=== PATIENT | female | born 1950 | race Caucasian/White ===

== ENCOUNTER 2016-08-18 10:25 | Inpatient (IN) | payer OTHER ==
[~2016-08-18] VITALS: Ht 160 cm; Wt 119.1 kg
--- NOTE | ~2016-08-18 | PR ---
[place], [place] PROGRESS NOTE [id number] UNIT #: [id number] ROOM: 511 DOCTOR: JOEL MONCADA MD BIRTHDATE: [birth year] DOS: 08/20/2016 SUBJECTIVE: The patient well known to me. I had done a heart catheterization 2 years ago and had patent coronary arteries, apparently admitted with rapid atrial fibrillation and I was told her ejection fraction is 35%. The echocardiogram is not reported yet. Dr. Shiela Cho had an echocardiogram done in the office showed an EF of 35-40%. Heart rate is still little bit faster today, but she is in AFib. She is being digitalized also. OBJECTIVE: VITAL SIGNS: Her blood pressure is 109/66, atrial fibrillation, rate is 105. NECK: Supple, no JVD. LUNGS: Diminished breath sounds. HEART: Sounds are irregularly irregular. ABDOMEN: Soft. NEUROLOGIC: Stable. LABORATORY DATA: Hemoglobin 14, hematocrit 48.2. The patient is on Eliquis. IMPRESSION AND PLAN: The patient with new onset atrial fibrillation. Continue the metoprolol 100 b.i.d. The patient is on Eliquis 5 b.i.d., digoxin, lisinopril and Lasix. The patient continues to be in atrial fibrillation, consideration should be given for an outpatient cardioversion. JOEL MONCADA MD CM:PNTRANS [phone] JOEL MONCADA MD 08/21/16 0256 interface
--- NOTE | ~2016-08-18 | CON ---
[place], [place] REPORT OF CONSULTATION NAME: MARY NEWBERRY UNIT #: [id number] ROOM: 511 DOCTOR: KARL JIMENEZ MD BIRTHDATE: [birth year] DOS: 08/18/2016 HISTORY OF PRESENT ILLNESS: This is a 66-year-old -[place] woman with a history of morbid obesity, essential hypertension and hyperlipidemia. She has never had atrial fibrillation, heart failure, diabetes, stroke, COPD or any bleeding ulcers or any kidney problems. She has never smoked and does not use alcoholic beverages. She had noticed swelling of the lower extremities over the last weeks and also had noticed increasing exertional shortness of breath, but no orthopnea. She did not have any palpitations. Dr. Shiela Cho saw her in her office today and apparently she had atrial fibrillation with very rapid ventricular rate. The patient is not aware of her heart beating fast or beating irregularly. There has not been any dizziness or loss of consciousness. She has not had any neurological symptoms. No fever or chills. She eats fine. HOME MEDICATIONS: Atenolol 150 mg daily, furosemide 40 mg p.o. daily, potassium 10 mEq daily, simvastatin 40 mg daily and vitamin D2. PHYSICAL EXAMINATION: GENERAL: The patient who is morbidly obese. She is alert, oriented, afebrile. VITAL SIGNS: Pulse is irregular at 124 beats per minute, blood pressure 114/73. NECK: JVP is greater than 15 cm of water. Pulsation is more visible during inspiration. CARDIOVASCULAR: There is no cardiomegaly. No murmurs are present. EXTREMITIES: There is 2+ edema below the knees, 3+ pedal edema and there is mild diffuse erythema below the knees. RESPIRATORY: Breath sounds are diminished probably because of obesity and crackles are present bilaterally. LABORATORY DATA: Monitor shows atrial fibrillation with very rapid ventricular rate. She had a diagnostic heart catheterization done many years ago and had normal coronary arteries. An echocardiogram done in Dr. Shiela Cho's office demonstrated an LV ejection fraction of 35-40%. Chest x-ray is not available for review. IMPRESSION: 1. Newly diagnosed atrial fibrillation with very rapid ventricular rate. 2. Moderately severe cardiomyopathy. This is likely to be tachycardia induced. Underlying coronary artery disease is a possibility, but she had normal coronary arteries 7 or 8 years ago. 3. She has acute on chronic combined systolic and diastolic heart failure, i.e., atrial fibrillation with rapid ventricular rate and reduced LV systolic function. RECOMMENDATIONS: [place], [place] REPORT OF CONSULTATION NAME: MARY NEWBERRY UNIT #: [id number] ROOM: [facility] DOCTOR: TONY MARTIN,KARL BIRTHDATE: [birth year] 1. I think she probably has a better control of ventricular rate with metoprolol and atenolol, therefore, metoprolol 50 mg b.i.d. is being started. I think for the time being, IV Cardizem should also be started to tame the heart rate adequately. 2. For heart failure, she should be given IV furosemide, which you have already started, dose should be adjusted depending on diuresis. I thank you for this consult. KARL JIMENEZ MD CM:CONSTR:REPORT OF CONSULTATION 45 08/19/162041 interface
--- NOTE | ~2016-08-18 | WRIGHTHP ---
[place], [place] PATIENT HISTORY AND PHYSICAL EXAM NAME: MARY NEWBERRY [facility] #: [id number] UNIT #: [id number] ROOM: 511 DOCTOR: JOÃO PALMER MD BIRTHDATE: [birth year] DOS: 08/18/2016 HISTORY OF PRESENT ILLNESS: The patient is 66 years old who was seen in the office recently with complaints of shortness of breath and leg edema. The patient was advised a chest x-ray as well as an echocardiogram. Echo showed she at the time of examination in the office was not in AFib. She was in regular sinus rhythm. During the echocardiogram, she was noted to have atrial fibrillation, and also noticed to have acute systolic dysfunction, and the patient was advised to come in to the office, where she was evaluated and was found to be in rapid AFib, and she was admitted to the hospital. She does complain of some mild shortness of breath and leg edema. She denies having any chest pains or palpitations, does not have any fever or chills, does not have any abdominal pain, nausea, any emesis. The patient has had some redness of her legs recently. Even though she was ordered a chest x-ray when last seen, she did not get it done, but upon admission yesterday, a chest x-ray was ordered. I do not have the results of that at the time of dictation. PAST MEDICAL HISTORY: Significant for: 1. Benign hypertension. 2. Left ventricular hypertrophy. 3. History of cardiac catheterization in 04/2014 shows no coronary artery disease. 4. History of vaginal bleed with negative workup. 5. Mixed hyperlipidemia. MEDICATIONS: She is on are metoprolol 150 mg daily, aspirin 81 daily. SOCIAL HISTORY: Nonsmoker, does not use any alcohol. PHYSICAL EXAMINATION: GENERAL: The patient is awake and alert and oriented in mild respiratory distress. VITAL SIGNS: Graphic trend shows a pressure of 117/69, pulse of 88, respirations 20, temperature 98.0. LUNGS: Diminished breath sounds. HEART: Few rales heard at the bases. CARDIOVASCULAR: Irregular. Heart rate in the low 100s. ABDOMEN: Obese, soft. EXTREMITIES: Trace edema with some minimal redness of the lower legs. ASSESSMENT AND PLAN: 1. Acute systolic congestive heart failure. The patient has been admitted. IV diuretics have been started. Echocardiogram again was done as an outpatient a few days ago. We will get a copy of it placed in chart. 2. New onset atrial fibrillation with rapid ventricular response. The patient has been admitted, rate control has been achieved with multiple medications and anticoagulants started. Dr. Del Castillo has been consulted. The patient just had a cardiac catheterization 2 years ago, so this possibly is rate related. 3. Benign hypertension, controlled. It would be in the patient's best interest to lose weight. [place], [place] PATIENT HISTORY AND PHYSICAL EXAM NAME: MARY NEWBERRY UNIT #: [id number] ROOM: [facility] DOCTOR: JOÃO PALMER MD BIRTHDATE: [birth year] JOÃO PALMER MD CM:HISPHYS:PATIENT HISTORY AND PHYSICAL EXAMINATION [id number] JOÃO PALMER MD 08/19/16 0814 interface
--- NOTE | ~2016-08-18 | PR ---
[place], [place] PROGRESS NOTE NAME: MARY NEWBERRY UNIT #: [id number] ROOM: 511 DOCTOR: JOÃO PALMER MD BIRTHDATE: [birth year] DOS: SUBJECTIVE: The patient feels okay, does not have any complaints today. OBJECTIVE: VITAL SIGNS: Blood pressure is 104/58, pulse of 90s to low 100s, respirations 20, temperature 97.7. LUNGS: Clear. HEART: Irregular. ABDOMEN: Obese, soft, nontender. EXTREMITIES: Trace edema. ASSESSMENT AND PLAN: 1. Cardiomyopathy, dilated, most likely from atrial fibrillation. There is no evidence of congestive heart failure. 2. Atrial fibrillation, new onset with rapid ventricular response, she still has some episodes, is on IV Cardizem and p.o. beta blockers. We will discuss with Dr. Jeffers today about further adjustments in medications. 3. Acute systolic congestive heart failure with peripheral volume overload, on diuretics, continue. JOÃO PALMER MD CM:PNTRANS [phone] JOÃO PALMER MD 08/20/16 1211 interface
--- NOTE | ~2016-08-18 | PR ---
[place], [place] PROGRESS NOTE NAME: MARY NEWBERRY UNIT #: [id number] ROOM: 511 DOCTOR: JOÃO PALMER MD BIRTHDATE: [birth year] DOS: 08/21/2016 SUBJECTIVE: The patient is doing fine without any complaint. Denies any chest pains, palpitations or shortness of breath. OBJECTIVE: VITAL SIGNS: Graphic trend shows a pressure of 101/72, pulse is 98, respirations 20, temperature 97.6. LUNGS: Clear. HEART: Irregular. Heart rate in the low 90s. ABDOMEN: Obese, soft. EXTREMITIES: Without any edema. ASSESSMENT AND PLAN: 1. Atrial fibrillation with rapid ventricular response. Heart rate has improved. 2. Cardiomyopathy, ejection fraction 35%, possibly rate related. 3. History of negative coronary artery disease with a negative cardiac catheterization 2 years ago. The patient is going to be discharged home today, anticoagulated, and possibly undergo cardioversion as an outpatient. 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 Bojorquez. JOÃO PALMER MD CM:PNTRANS [phone] JOÃO PALMER MD 08/22/16 0040 interface
--- NOTE | ~2016-08-18 | DS ---
[place], [place] DISCHARGE SUMMARY NAME: MARY NEWBERRY [facility] #: [id number] UNIT #: [id number] ROOM: 511 DOCTOR: JOÃO PALMER MD BIRTHDATE: [birth year] DOS: 08/21/2016 DIAGNOSES: 1. Atrial fibrillation with rapid ventricular response. 2. Severe cardiomyopathy with a wall motion abnormality, ejection fraction 35%. 3. Acute systolic congestive heart failure, resolved. 4. Leg edema, improved. 5. History of cardiac catheterization 2 years ago, which shows no coronary artery disease. 6. Benign hypertension. HOSPITAL COURSE: This patient is 66 years old, comes in with complaints of shortness of breath. She was found to be in rapid AFib in the office and had an echocardiogram, which also showed that she had ejection fraction of 35%, and she was admitted. The patient after admission, IV diuretics were given. The patient was placed on high dose of beta blockers, lisinopril as well as IV heparin protocol. This was later changed to Eliquis. The patient is stable and is not having any problems. She does have some periods where the heart rate does go up, but the rate is much better controlled now. Her leg swelling has improved. Dr. Peters and Dr. Jeffers did see the patient and agreed on the treatment plan. The patient will need a cardioversion as an outpatient. The patient is overall stable and today. The plan is to discharge her to home today. DISCHARGE MEDICATIONS: Eliquis 5 mg b.i.d., metoprolol 100 b.i.d., lisinopril 10 daily, digoxin 0.125 daily, simvastatin 40 daily, potassium 10 daily, vitamin D 50,000 units daily, Lasix 60 mg daily. JOÃO PALMER MD CM:DISCHARG [id number] JOÃO PALMER MD 08/21/16 0916 interface
[~2016-08-18 10:25] MED LIST: ASPIRIN CHILDRE81 MG PO; ATENOLOL100 M1 PO; ATENOLOL100 MG PO; DAYPRO600 M1 PO; IBU-8800 MG PO; SIMVASTATIN40 MG PO
[2016-08-18 10:52] VITALS: BP 125/69
[2016-08-18] MEDS ORDERED: ATENOLOL100 M1 PO ×2 (11:40→11:41)
[2016-08-18] MEDS ORDERED: LASIX40 MG PO (11:41)
[2016-08-18] MEDS ORDERED: K-TAB10 MEQ PO (11:42)
[2016-08-18] MEDS ORDERED: VITAMIN D50000 I3 PO (11:42)
[2016-08-18 12:26] LABS: BASO % 0.1 % (0.0-1.0); EOS # 0.1 10*3/uL (0.0-0.4); HEMATOCRIT 48.2 % (37.0-47.0); HEMOGLOBIN 14.3 g/dl (12.0-16.0); LYMPH # 1.5 10*3/uL (1.3-4.4); LYMPH % 17.5 % (27.0-41.0); MEAN CELL VOLUME 94.3 fl (81.0-99.0); MEAN CORPUSCULAR HGB CONC 29.7 g/dl (33.0-37.0); MEAN PLATELET VOLUME 11.3 fl (9.6-12.3); MONO # 0.4 10*3/uL (0.1-1.0); MONO % 4.6 % (3.0-9.0); NEUT # 6.3 10*3/uL (2.3-7.9); NEUT % 76.6 % (47.0-73.0); PLATELET COUNT AUTOMATED 194 10*3/uL (130-400); RED BLOOD COUNT 5.11 10*6/uL (4.10-5.10); RED CELL DISTRI WIDTH 13.8 % (0-14.5); WHITE BLOOD COUNT 8.3 10*3/uL (4.8-10.8)
[2016-08-18 12:36] LABS: PROTHROMBIN TIME 10.9 SECONDS (9.0-12.4)
[2016-08-18 16:00] VITALS: BP 121/92
[2016-08-18 20:00] VITALS: BP 114/73
[2016-08-19] VITALS (12 sets, daily range): BP systolic 95–122; BP diastolic 49–76
[2016-08-20] VITALS (7 sets, daily range): BP systolic 94–123; BP diastolic 53–89
[2016-08-21] VITALS: BP 101/72
[2016-08-21 08:00] VITALS: BP 132/88
[2016-08-21] MEDS ORDERED: ELIQUIS5 M1 PO (08:53)
[2016-08-21] MEDS ORDERED: DIGITEK0.125 MG PO (08:53)
[2016-08-21] MEDS ORDERED: METOPROLOL TART50 M1 PO (08:53)
[2016-08-21] MEDS ORDERED: LISINOPRIL10 M1 PO (08:53)
[2016-08-21] MEDS ORDERED: LASIX40 MG PO (08:53)
== END 2016-08-21 09:42 | disposition home or self-care (01) | DRG 308 ==
LOC: 5E 10:25
PROVIDERS: Internal Medicine
DX: I48.91 Unspecified atrial fibrillation (principal); I50.21 Acute systolic (congestive) heart failure; I50.43 Acute on chronic combined systolic (congestive) and diastolic (congestive) heart failure; I11.0 Hypertensive heart disease with heart failure; I42.9 Cardiomyopathy, unspecified; E78.2 Mixed hyperlipidemia

== ENCOUNTER → 2017-09-16 | Outpatient (CLI) | payer OTHER ==
[~2017-09-16] MED LIST changes: +DIGITEK0.125 MG PO; +ELIQUIS5 M1 PO; +K-TAB10 MEQ PO; +LASIX40 MG PO; +LISINOPRIL10 M1 PO; +METOPROLOL TART50 M1 PO; +VITAMIN D50000 I3 PO
== END ==
LOC: CT 08:31
DX: K76.0 Fatty (change of) liver, not elsewhere classified (principal); N28.1 Cyst of kidney, acquired

== ENCOUNTER → 2017-10-19 | Outpatient (CLI) | payer OTHER | END | disposition home or self-care (01) | LOC: US 15:54 | DX: N95.0 Postmenopausal bleeding (principal) ==

== ENCOUNTER → 2018-01-14 | Outpatient (CLI) | payer OTHER | END | disposition home or self-care (01) | LOC: MAMMO 12:34 | DX: Z12.31 Encounter for screening mammogram for malignant neoplasm of breast (principal); I73.9 Peripheral vascular disease, unspecified ==

== ENCOUNTER → 2018-12-06 | Outpatient (CLI) | payer OTHER | END | disposition home or self-care (01) | LOC: US 06:09 | DX: Z01.818 Encounter for other preprocedural examination (principal); Z78.0 Asymptomatic menopausal state ==

== ENCOUNTER → 2019-01-31 | Outpatient (CLI) | payer OTHER ==
[~2019-01-31] MED LIST changes: +ENOXAPARIN40 MG/0.2 SQ; +METFORMIN HYDR500 MG PO; +METOPROLOL TAR100 M1 PO; +Motrin,Rufen800 MG PO
== END | disposition home or self-care (01) ==
LOC: LAB 13:45
DX: N95.0 Postmenopausal bleeding (principal)

== ENCOUNTER → 2019-02-07 | Day surgery (SDC) | payer OTHER ==
[2019-01-31 14:37] VITALS: BP 100/51
[~2019-02-07] VITALS: Ht 160 cm; Wt 108.9 kg
[2019-02-07 07:30] VITALS: BP 115/54
[2019-02-07 09:30] VITALS: BP 107/67
[2019-02-07 09:45] VITALS: BP 107/66
[2019-02-07 10:01] VITALS: BP 108/67
== END | disposition home or self-care (01) ==
LOC: SDC 01-31 14:00
DX: N85.01 Benign endometrial hyperplasia (principal); N92.4 Excessive bleeding in the premenopausal period; I10 Essential (primary) hypertension; E11.9 Type 2 diabetes mellitus without complications; I48.91 Unspecified atrial fibrillation; R93.89 Abnormal findings on diagnostic imaging of other specified body structures; E66.01 Morbid (severe) obesity due to excess calories; Z68.41 Body mass index [BMI] 40.0-44.9, adult; Z98.51 Tubal ligation status; Z98.890 Other specified postprocedural states; Z79.899 Other long term (current) drug therapy

== ENCOUNTER → 2019-05-27 | Outpatient (CLI) | payer OTHER ==
[2019-05-27 08:22] LABS: BASO % 0.1 % (0.0-1.0); EOS # 0.1 10*3/uL (0.0-0.4); EOS % 1.6 % (1.0-4.0); HEMATOCRIT 46.4 % (37.0-47.0); HEMOGLOBIN 14.2 g/dl (12.0-16.0); LYMPH # 1.4 10*3/uL (1.3-4.4); LYMPH % 15.6 % (27.0-41.0); MEAN CELL VOLUME 93.2 fl (81.0-99.0); MEAN CORPUSCULAR HGB 28.5 pg (27.0-31.0); MEAN CORPUSCULAR HGB CONC 30.6 g/dl (33.0-37.0); MEAN PLATELET VOLUME 11.2 fl (9.6-12.3); MONO # 0.5 10*3/uL (0.1-1.0); MONO % 5.9 % (3.0-9.0); NEUT # 6.8 10*3/uL (2.3-7.9); NEUT % 76.6 % (47.0-73.0); PLATELET COUNT AUTOMATED 228 10*3/uL (130-400); RED BLOOD COUNT 4.98 10*6/uL (4.10-5.10); RED CELL DISTRI WIDTH 15.2 % (0-14.5); WHITE BLOOD COUNT 8.9 10*3/uL (4.8-10.8)
[2019-05-27 08:51] LABS: ALBUMIN 3.3 gm/dl (3.1-4.5); BUN 20 mg/dl (7-24); CHLORIDE 105 mmol/L (98-107); CHOLESTEROL 148 mg/dL (<200); CREATININE 0.92 mg/dL (0.55-1.02); FREE T4 1.08 ng/dl (0.76-1.46); HDL CHOLESTEROL 44 mg/dl (40-60); LDL CHOLESTEROL 64 mg/dL (9-159); POTASSIUM 4.6 mmol/L (3.5-5.1); SGOT/AST 13 IU/L (3-35); SGPT/ALT 20 U/L (12-78); SODIUM 141 mmol/L (136-145); TOTAL PROTEIN 6.9 gm/dL (6.4-8.2); TRIGLYCERIDES 200 mg/dl (<150); VLDL CHOLESTEROL 40 mg/dL (6-40)
[2019-05-27 08:57] LABS: ALKALINE PHOSPHATASE 94 U/L (45-117)
[2019-05-27 09:09] LABS: VITAMIN D, 25-HYDROXY 23.9 ng/mL (30-100)
== END | disposition home or self-care (01) ==
LOC: LAB 08:02
PROVIDERS: Internal Medicine
DX: I10 Essential (primary) hypertension (principal); E11.9 Type 2 diabetes mellitus without complications; E55.9 Vitamin D deficiency, unspecified

== ENCOUNTER → 2019-10-06 | Outpatient (CLI) | payer MEDICARE | END | disposition home or self-care (01) | LOC: US 10:03 | DX: I87.2 Venous insufficiency (chronic) (peripheral) (principal); I73.9 Peripheral vascular disease, unspecified ==

== ENCOUNTER → 2020-05-02 | Outpatient (CLI) | payer MEDICARE ==
[2020-05-02 14:46] LABS: BASO % 0.1 % (0.0-1.0); EOS # 0.2 10*3/uL (0.0-0.4); EOS % 1.6 % (1.0-4.0); HEMATOCRIT 44.7 % (37.0-47.0); LYMPH # 1.8 10*3/uL (1.3-4.4); LYMPH % 18.8 % (27.0-41.0); MEAN CELL VOLUME 94.9 fl (81.0-99.0); MEAN CORPUSCULAR HGB 28.7 pg (27.0-31.0); MEAN CORPUSCULAR HGB CONC 30.2 g/dl (33.0-37.0); MEAN PLATELET VOLUME 11.1 fl (9.6-12.3); MONO # 0.5 10*3/uL (0.1-1.0); MONO % 5.7 % (3.0-9.0); NEUT # 6.9 10*3/uL (2.3-7.9); NEUT % 73.4 % (47.0-73.0); PLATELET COUNT AUTOMATED 230 10*3/uL (130-400); RED BLOOD COUNT 4.71 10*6/uL (4.10-5.10); RED CELL DISTRI WIDTH 13.1 % (0-14.5); WHITE BLOOD COUNT 9.3 10*3/uL (4.8-10.8)
[2020-05-02 15:22] LABS: ALBUMIN 3.3 gm/dl (3.1-4.5); CHLORIDE 103 mmol/L (98-107); SODIUM 139 mmol/L (136-145)
[2020-05-02 15:36] LABS: ALKALINE PHOSPHATASE 91 U/L (45-117); BUN 16 mg/dl (7-24); CHOLESTEROL 156 mg/dL (<200); FREE T4 1.08 ng/dl (0.76-1.46); HDL CHOLESTEROL 42 mg/dl (40-60); LDL CHOLESTEROL 55 mg/dL (9-159); SGOT/AST 11 IU/L (3-35); SGPT/ALT 24 U/L (12-78); TOTAL PROTEIN 6.9 gm/dL (6.4-8.2); TRIGLYCERIDES 293 mg/dl (<150); VLDL CHOLESTEROL 59 mg/dL (6-40)
[2020-05-02 15:38] LABS: VITAMIN D, 25-HYDROXY 23.4 ng/mL (30-100)
== END | disposition home or self-care (01) ==
LOC: LAB 14:14
PROVIDERS: ATTEND Internal Medicine
DX: Z00.00 Encounter for general adult medical examination without abnormal findings (principal); E11.9 Type 2 diabetes mellitus without complications; I10 Essential (primary) hypertension; E55.9 Vitamin D deficiency, unspecified; I48.91 Unspecified atrial fibrillation; E78.2 Mixed hyperlipidemia

== ENCOUNTER 2020-09-15 07:21 | Emergency (ER) | payer MEDICARE ==
[2020-09-15] MEDS ORDERED: MITIGARE0.6 MG PO (08:40)
== END 2020-09-15 08:54 | disposition home or self-care (01) ==
LOC: ED 07:21
DX: M25.531 Pain in right wrist (principal); M10.9 Gout, unspecified; Z79.899 Other long term (current) drug therapy

== ENCOUNTER → 2020-12-02 | Outpatient (CLI) | payer MEDICARE ==
[~2020-12-02] MED LIST changes: +MITIGARE0.6 MG PO
== END | disposition home or self-care (01) ==
LOC: RAD 09:43 → MAMMO 10:30
PROVIDERS: ATTEND Internal Medicine
DX: Z12.31 Encounter for screening mammogram for malignant neoplasm of breast (principal); Z13.820 Encounter for screening for osteoporosis; Z78.0 Asymptomatic menopausal state

== ENCOUNTER 2021-01-31 14:55 | Emergency (ER) | payer MEDICARE ==
[~2021-01-31] VITALS: Ht 160 cm; Wt 99.8 kg
[2021-01-31] MEDS ORDERED: MEDROL DOSEPAK4 MG PO (16:28)
[2021-01-31] MEDS ORDERED: HYDROCODONE-AC1 EAC1 PO (16:29)
== END 2021-01-31 16:37 | disposition home or self-care (01) ==
LOC: ED 14:55
DX: M10.9 Gout, unspecified (principal); Z79.899 Other long term (current) drug therapy

== ENCOUNTER → 2022-03-10 | Outpatient (CLI) | payer MEDICARE ==
[~2022-03-10] MED LIST changes: +HYDROCODONE-AC1 EAC1 PO; +MEDROL DOSEPAK4 MG PO
[2022-03-10 09:01] LABS: BASO % 0.1 % (0.0-1.0); EOS # 0.1 10*3/uL (0.0-0.4); EOS % 1.5 % (1.0-4.0); HEMATOCRIT 43.6 % (37.0-47.0); LYMPH # 1.3 10*3/uL (1.3-4.4); LYMPH % 19.4 % (27.0-41.0); MEAN CORPUSCULAR HGB 29.4 pg (27.0-31.0); MEAN CORPUSCULAR HGB CONC 31.7 g/dl (33.0-37.0); MONO # 0.4 10*3/uL (0.1-1.0); NEUT # 4.9 10*3/uL (2.3-7.9); NEUT % 72.9 % (47.0-73.0); PLATELET COUNT AUTOMATED 178 10*3/uL (130-400); RED BLOOD COUNT 4.69 10*6/uL (4.10-5.10); RED CELL DISTRI WIDTH 13.3 % (0-14.5); WHITE BLOOD COUNT 6.7 10*3/uL (4.8-10.8)
[2022-03-10 09:35] LABS: ALKALINE PHOSPHATASE 65 U/L (46-116); BUN 13 mg/dl (9-23); CHLORIDE 104 mmol/L (98-107); CHOLESTEROL 131 mg/dL (<200); CREATININE 0.77 mg/dL (0.55-1.02); LDL CHOLESTEROL 58 mg/dL (9-159); POTASSIUM 4.9 mmol/L (3.4-5.1); SGPT/ALT 20 U/L (10-49); SODIUM 136 mmol/L (136-145); TOTAL PROTEIN 6.6 gm/dL (6.0-8.0); TRIGLYCERIDES 155 mg/dl (<150)
[2022-03-10 09:37] LABS: FREE T4 1.09 ng/dl (0.89-1.76); T3 UPTAKE 27.5 % (22.4-36.7); THYROID STIM HORMONE (HS) 2.463 uIU/ml (0.550-4.780)
[2022-03-10 10:11] LABS: VITAMIN D, 25-HYDROXY 41.5 ng/mL (30-100)
== END | disposition home or self-care (01) ==
LOC: LAB 08:21
PROVIDERS: ATTEND Internal Medicine
DX: E11.65 Type 2 diabetes mellitus with hyperglycemia (principal); I10 Essential (primary) hypertension; E55.9 Vitamin D deficiency, unspecified; Z13.0 Encounter for screening for diseases of the blood and blood-forming organs and certain disorders involving the immune mechanism; Z13.89 Encounter for screening for other disorder; Z13.1 Encounter for screening for diabetes mellitus; Z13.21 Encounter for screening for nutritional disorder; Z13.228 Encounter for screening for other metabolic disorders; Z13.220 Encounter for screening for lipoid disorders; Z13.29 Encounter for screening for other suspected endocrine disorder; Z13.6 Encounter for screening for cardiovascular disorders; Z13.9 Encounter for screening, unspecified

== ENCOUNTER → 2022-04-20 | Outpatient (CLI) | payer MEDICARE | END | disposition home or self-care (01) | LOC: MAMMO 08:27 | PROVIDERS: ATTEND Internal Medicine | DX: Z12.31 Encounter for screening mammogram for malignant neoplasm of breast (principal) ==

== ENCOUNTER → 2022-12-09 | Outpatient (CLI) | payer MEDICARE | END | disposition home or self-care (01) | LOC: LAB 15:24 | PROVIDERS: ATTEND Internal Medicine | DX: R21 Rash and other nonspecific skin eruption (principal) ==

== ENCOUNTER 2023-11-18 15:20 | Inpatient (IN) | payer MEDICARE ==
[~2023-11-18] VITALS: Ht 160 cm; Wt 93.6 kg
[2023-11-18 15:28] VITALS: BP 139/67
[2023-11-18] MEDS ORDERED: Piperacillin Sodium/Tazobact 50 ML IV ONE (15:45)
[2023-11-18] MEDS ORDERED: Vancomycin Hydrochloride 250 ML IV ONE (15:45)
[2023-11-18 16:01] LABS: BASO % 0.1 % (0.0-1.0); EOS # 0.1 10*3/uL (0.0-0.4); EOS % 1.4 % (1.0-4.0); HEMATOCRIT 45.5 % (37.0-47.0); LYMPH # 1.9 10*3/uL (1.3-4.4); LYMPH % 19.1 % (27.0-41.0); MEAN CORPUSCULAR HGB 29.5 pg (27.0-31.0); MEAN CORPUSCULAR HGB CONC 31.4 g/dl (33.0-37.0); MEAN PLATELET VOLUME 10.5 fl (9.6-12.3); MONO # 0.5 10*3/uL (0.1-1.0); MONO % 5.5 % (3.0-9.0); NEUT # 7.1 10*3/uL (2.3-7.9); NEUT % 73.6 % (47.0-73.0); PLATELET COUNT AUTOMATED 203 10*3/uL (130-400); RED BLOOD COUNT 4.84 10*6/uL (4.10-5.10); RED CELL DISTRI WIDTH 13.7 % (0-14.5); WHITE BLOOD COUNT 9.7 10*3/uL (4.8-10.8)
[2023-11-18 16:15] LABS: BUN 14 mg/dl (9-23); CHLORIDE 104 mmol/L (98-107); POTASSIUM 4.4 mmol/L (3.4-5.1)
[2023-11-18] MEDS ORDERED: OZEMPIC0.25 MG/03 SQ (17:45)
[2023-11-18 19:30] VITALS: BP 132/72
[2023-11-18] MEDS ORDERED: Magnesium Hydroxide 30 ML UDC PO PRN (21:55)
[2023-11-18] MEDS ORDERED: BISACODYL 10 MG SUPP R PRN (21:55)
[2023-11-18] MEDS ORDERED: ACETAMINOPHEN 325 MG TAB PO PRN (21:55)
[2023-11-18] MEDS ORDERED: BISACODYL 5 MG TAB PO PRN (21:55)
[2023-11-18] MEDS ORDERED: Ondansetron Hydrochloride 4 MG/2 ML VIAL IV PRN (21:55)
[2023-11-18] MEDS ORDERED: ACETAMINOPHEN 650 MG SUPP R PRN (21:55)
[2023-11-18] MEDS ORDERED: Piperacillin Sodium/Tazobact 50 ML IV SCH (22:00)
[2023-11-18] MEDS ORDERED: SODIUM CHLORIDE 0.9% 1,000 ML IV ONE (22:15)
[2023-11-18] MEDS ORDERED: DEXTROSE 10 % IN WATER 250 ML IV PRN (22:15)
[2023-11-19 02:10] VITALS: BP 138/76
[2023-11-19] MEDS ORDERED: Vancomycin Hydrochloride 1,000 MG in SODIUM CHLORIDE 0.9% 250 ML IV SCH (06:00)
[2023-11-19 06:08] LABS: ALKALINE PHOSPHATASE 103 U/L (46-116); BUN 10 mg/dl (9-23); CHLORIDE 102 mmol/L (98-107); CHOLESTEROL 130 mg/dL (<200); FREE T4 1.22 ng/dl (0.89-1.76); LDL CHOLESTEROL 62 mg/dL (9-159); POTASSIUM 4.4 mmol/L (3.4-5.1); SGPT/ALT 21 U/L (5-49); TOTAL PROTEIN 6.7 gm/dL (6.0-8.0); TRIGLYCERIDES 142 mg/dl (<150)
[2023-11-19 06:27] LABS: BASO % 0.2 % (0.0-1.0); EOS # 0.1 10*3/uL (0.0-0.4); HEMATOCRIT 44.9 % (37.0-47.0); LYMPH # 1.4 10*3/uL (1.3-4.4); LYMPH % 11.9 % (27.0-41.0); MEAN CELL VOLUME 92.8 fl (81.0-99.0); MEAN CORPUSCULAR HGB 30.2 pg (27.0-31.0); MEAN CORPUSCULAR HGB CONC 32.5 g/dl (33.0-37.0); MEAN PLATELET VOLUME 11.2 fl (9.6-12.3); MONO # 0.7 10*3/uL (0.1-1.0); NEUT # 9.6 10*3/uL (2.3-7.9); NEUT % 80.6 % (47.0-73.0); PLATELET COUNT AUTOMATED 183 10*3/uL (130-400); RED BLOOD COUNT 4.84 10*6/uL (4.10-5.10); RED CELL DISTRI WIDTH 13.5 % (0-14.5); WHITE BLOOD COUNT 11.9 10*3/uL (4.8-10.8)
[2023-11-19] MEDS ORDERED: INSULIN LISPRO 1 UNIT/0.01 ML SQ SCH (07:30)
[2023-11-19 08:00] VITALS: BP 136/66
[2023-11-19] MEDS ORDERED: TRADJENTA5 M1 PO (09:03)
[2023-11-19] MEDS ORDERED: FUROSEMIDE 40 MG TAB PO SCH (10:00)
[2023-11-19] MEDS ORDERED: LINAGLIPTIN 5 MG TAB PO SCH (10:00)
[2023-11-19] MEDS ORDERED: Metoprolol Tartrate 100 MG TAB PO SCH (10:00)
[2023-11-19] MEDS ORDERED: LISINOPRIL 10 MG TAB PO SCH (10:00)
[2023-11-19] MEDS ORDERED: APIXABAN 5 MG TAB PO SCH (10:00)
[2023-11-19] MEDS ORDERED: DIGOXIN 125 MCG TAB PO SCH (10:00)
[2023-11-19] MEDS ORDERED: POTASSIUM CHLORIDE 10 MEQ TAB PO SCH (10:00)
[2023-11-19 12:00] VITALS: BP 114/70
[2023-11-19 16:00] VITALS: BP 111/52
[2023-11-19] MEDS ORDERED: VANCOMYCIN/WATER FOR INJ (PEG) 300 ML IV SCH (18:01)
[2023-11-19 20:00] VITALS: BP 110/58
[2023-11-19] MEDS ORDERED: SIMVASTATIN 20 MG TAB PO SCH (22:00)
[2023-11-20] VITALS: BP 118/65
[2023-11-20 08:00] VITALS: BP 130/83
[2023-11-20] MEDS ORDERED: VIBRAMYCIN100 MG PO (08:46)
[2023-11-20] MEDS ORDERED: FOAM BANDAGE 1 EACH BANDAGE T ONE (10:21)
[2023-11-20] MEDS ORDERED: ALGINATE DRESSING/CME-CELL 4X4 1 EACH BANDAGE T ONE (10:21)
[2023-11-20] MEDS ORDERED: FOAM BANDAGE 5X5 T ONE (10:22)
[2023-11-20] MEDS ORDERED: FOAM BANDAGE HEEL T ONE (10:22)
[2023-11-20] MEDS ORDERED: ALGINATE DRESSING/CME-CELL 1 EACH BANDAGE T ONE (10:24)
[2023-11-20] MEDS ORDERED: ADHESIVE BANDAGE 1 EACH BANDAGE T ONE (10:33)
== END 2023-11-20 12:06 | disposition home or self-care (01) | DRG 563 ==
LOC: ED 15:20 → 4E 19:37 → EDHOLD 19:37 → 4E 11-19 01:33
PROVIDERS: Nurse Practitioner; Student in an Organized Health Care Education/Training Program; ADMIT Internal Medicine; ATTEND Internal Medicine
DX: S82.61XA Displaced fracture of lateral malleolus of right fibula, initial encounter for closed fracture (principal); L03.115 Cellulitis of right lower limb; I48.21 Permanent atrial fibrillation; S93.491A Sprain of other ligament of right ankle, initial encounter; S90.851A Superficial foreign body, right foot, initial encounter; I87.2 Venous insufficiency (chronic) (peripheral); Z98.51 Tubal ligation status; Z90.710 Acquired absence of both cervix and uterus; Z82.49 Family history of ischemic heart disease and other diseases of the circulatory system; Z80.6 Family history of leukemia; W18.39XA Other fall on same level, initial encounter; Y93.89 Activity, other specified; Y92.098 Other place in other non-institutional residence as the place of occurrence of the external cause; Y99.8 Other external cause status

== ENCOUNTER → 2023-11-29 | Outpatient (CLI) | payer MEDICARE ==
[~2023-11-29] MED LIST changes: +OZEMPIC0.25 MG/03 SQ; +TRADJENTA5 M1 PO; +VIBRAMYCIN100 MG PO
== END | disposition home or self-care (01) ==
LOC: WOUNDCARE 00:42
PROVIDERS: ATTEND Nurse Practitioner Family
DX: S81.811A Laceration without foreign body, right lower leg, initial encounter (principal); I48.91 Unspecified atrial fibrillation; E78.00 Pure hypercholesterolemia, unspecified; E11.51 Type 2 diabetes mellitus with diabetic peripheral angiopathy without gangrene; M19.90 Unspecified osteoarthritis, unspecified site; Z95.818 Presence of other cardiac implants and grafts; X58.XXXA Exposure to other specified factors, initial encounter; Y93.89 Activity, other specified; Y92.89 Other specified places as the place of occurrence of the external cause; Y99.8 Other external cause status

== ENCOUNTER → 2023-12-27 | Outpatient (CLI) | payer MEDICARE | END | disposition home or self-care (01) | LOC: RAD 08:33 | PROVIDERS: ATTEND Internal Medicine | DX: Z13.820 Encounter for screening for osteoporosis (principal); M81.0 Age-related osteoporosis without current pathological fracture; Z78.0 Asymptomatic menopausal state ==

== ENCOUNTER → 2024-04-13 | Outpatient (CLI) | payer MEDICARE | END | disposition home or self-care (01) | LOC: MAMMO 13:53 | PROVIDERS: ATTEND Internal Medicine | DX: Z12.31 Encounter for screening mammogram for malignant neoplasm of breast (principal) ==

== ENCOUNTER → 2024-11-18 | Outpatient (CLI) | payer MEDICARE ==
[2024-11-18 11:18] LABS: BASO # 0.0 10*3/uL (0.0-0.1); BASO % 0.1 % (0.0-1.0); EOS # 0.1 10*3/uL (0.0-0.4); EOS % 1.1 % (1.0-4.0); MEAN CELL VOLUME 95.9 fl (81.0-99.0); MEAN CORPUSCULAR HGB 29.7 pg (27.0-31.0); MEAN PLATELET VOLUME 10.8 fl (9.6-12.3); MONO # 0.4 10*3/uL (0.1-1.0); MONO % 4.4 % (3.0-9.0); NEUT # 6.1 10*3/uL (2.3-7.9); NEUT % 76.4 % (47.0-73.0); NUCLEATED RED BLOOD CELL 0.0 % (0.0-0.0); NUCLEATED RED BLOOD CELL 0.0 10*3/uL (0.0-0.0); PLATELET COUNT AUTOMATED 171 10*3/uL (130-400); RED CELL DISTRI WIDTH 13.5 % (0-14.5)
[2024-11-18 11:45] LABS: BUN 16 mg/dl (9-23); FREE T4 1.11 ng/dl (0.89-1.76); LDL CHOLESTEROL 56 mg/dL (9-159); SGPT/ALT 15 U/L (5-49)
[2024-11-18 11:53] LABS: VITAMIN D, 25-HYDROXY 42.7 ng/mL (30-100)
== END | disposition home or self-care (01) ==
LOC: LAB 09:53
PROVIDERS: ATTEND Internal Medicine
DX: I10 Essential (primary) hypertension (principal); E11.65 Type 2 diabetes mellitus with hyperglycemia; E78.2 Mixed hyperlipidemia; E55.9 Vitamin D deficiency, unspecified; E53.9 Vitamin B deficiency, unspecified; R53.83 Other fatigue; Z13.0 Encounter for screening for diseases of the blood and blood-forming organs and certain disorders involving the immune mechanism; Z13.1 Encounter for screening for diabetes mellitus; Z13.21 Encounter for screening for nutritional disorder; Z13.220 Encounter for screening for lipoid disorders; Z13.6 Encounter for screening for cardiovascular disorders; Z13.228 Encounter for screening for other metabolic disorders; Z13.29 Encounter for screening for other suspected endocrine disorder; Z13.89 Encounter for screening for other disorder